=== PATIENT | male | born 1930 | race Caucasian/White ===

== ENCOUNTER 2019-02-06 16:09 | Emergency (ER) | payer MEDICARE, MEDICAID ==
[~2019-02-06] VITALS: Ht 165.1 cm; Wt 81.6 kg
--- NOTE | 2019-02-06 17:40 | NUR ---
PT WAS D/C'd TO HOME AFTER DR BISHOP EVALUATION. D/C INSTRUCTIONS GIVEN TO THE PT AND TO HIS DONELLER.
[2019-02-06 17:42] VITALS: BP 146/89
[2019-02-06] MEDS ORDERED: ACETAMINOPHEN ES 500 MG TABLET PO ONE (17:45)
== END 2019-02-06 17:44 | disposition home or self-care (01) ==
LOC: ER 16:11
DX: S61.511D Laceration without foreign body of right wrist, subsequent encounter (principal); X58.XXXD Exposure to other specified factors, subsequent encounter
CPT/HCPCS: A4663